=== PATIENT | female | born 1975 | race Two or more races ===

== ENCOUNTER 2025-02-04 06:35 | Day surgery (SDC) | payer MEDICAID, SELFPAY ==
[2025-02-03 17:58] LABS: HCG Qualitative,Urine Negative
[2025-02-04] VITALS (8 sets, daily range): BP systolic 118–175; BP diastolic 65–98; PULSE 55–80; RESP 13–20; TEMP 36.2–36.4; O2SAT 96–100; BMI 35.3
[2025-02-04] MEDS: MIDAZOLAM INJ 1 MG/ML VIAL 2 ML (ASD USE ONLY) 2 MG IVP (07:32)
[2025-02-04] MEDS: SODIUM CHLORIDE 0.9% 500 ML 500 ML 100 ML IV (07:32)
[2025-02-04] MEDS: fentaNYL CIT INJ 50 mCg/ML AMP 2ML (ASD USE ONLY) IVP (07:33)
[2025-02-04] MEDS: DiphenhydrAMINE INJ 50 MG/ML VIAL 25 MG IVP (07:34)
== END 2025-02-04 08:26 | disposition home or self-care (01) ==
PROVIDERS: PCP Obstetrics & Gynecology; Referring Provider Surgery; Visit Provider Surgery
PROC: 0DBE8ZX Excision of Large Intestine, Via Natural or Artificial Opening Endoscopic, Diagnostic (ICD-10-PCS; CPT 45380; principal; 2025-02-04 07:30)
DX: Z12.11 Encounter for screening for malignant neoplasm of colon (principal); K64.1 Second degree hemorrhoids
CPT/HCPCS: 45378; 81025; J1200; J2250; J3010; J7040